=== PATIENT | male | born 1970 | race Hispanic/Latino ===

== ENCOUNTER 2019-04-18 10:59 | Outpatient (CLI) | payer MEDICAID ==
--- NOTE | 2019-04-18 12:24 | Vascular Lab Report ---
DUPLEX DOPPLER LOWER EXTREMITY VEINS, LEFT INDICATION: M79.89 Other specified soft tissue disorders/M79.662. Left leg pain. TECHNIQUE: Duplex doppler imaging was performed through the veins of the left lower extremity using venous compr ession and other maneuvers. COMPARISON: None available. FINDINGS: Common femoral vein: Negative. Superficial femoral vein: Negative. Popliteal vein: Negative. Calf veins: Negative. Additional findings: There is no evidence of a popliteal cyst or other abnormality. IMPRESSION: No sonographic evidence for DVT in the left lower extremity. Signer Name: Kev Self MD Signed: 04/18/2019 12:20 PM Workstation Name: [id number]
== END 2019-04-18 11:00 | disposition home or self-care (01) ==
LOC: VAS 10:59
PROVIDERS: ATTEND Podiatrist Foot & Ankle Surgery
DX: M79.662 Pain in left lower leg (principal); M79.89 Other specified soft tissue disorders